=== PATIENT | female | born 1985 | race Caucasian/White ===

== ENCOUNTER 2017-10-11 13:49 | Emergency (ER) | payer BC | END 2017-10-11 17:12 | disposition home or self-care (01) | LOC: FTE 13:49 | DX: O26.891 Other specified pregnancy related conditions, first trimester (principal); R10.2 Pelvic and perineal pain; Z3A.14 14 weeks gestation of pregnancy | CPT/HCPCS: 76801; 99284-25 ==

== ENCOUNTER 2017-12-20 09:45 | Emergency (ER) | payer BC ==
[2017-12-20] MEDS: ACETAMINOPHEN 500 MG TAB PO (10:11)
[2017-12-20] MEDS: PENICILLIN V K 250 MG TAB PO (10:11)
== END 2017-12-20 10:13 | disposition home or self-care (01) ==
LOC: E/R 09:45
DX: O99.612 Diseases of the digestive system complicating pregnancy, second trimester (principal); K02.9 Dental caries, unspecified; Z3A.25 25 weeks gestation of pregnancy
CPT/HCPCS: 99283

== ENCOUNTER 2017-12-31 18:42 | Inpatient (IN) | payer BC ==
[2017-12-31] MEDS ORDERED: AL HYDROX/MG HYDROX/SIMETH 30 ML CUP PO (20:00)
[2017-12-31 20:19] LABS: ADD MAN DIFF? NO
[2017-12-31 20:23] LABS: BASOPHILS % 0.3 % (0.0-2.0); HEMOGLOBIN 13.2 g/dl (12.0-16.0); LYMPHOCYTES # 1.8 10^3/ul (0.8-2.9); LYMPHOCYTES % 12.1 % (15.0-51.0); MEAN CORPUSCULAR HEMOGLOBIN 29.7 pg (29.0-33.0); MEAN CORPUSCULAR HGB CONC 34.7 g/dl (32.0-37.0); MEAN CORPUSCULAR VOLUME 85.4 fl (82.0-101.0); MONOCYTE # 0.3 10^3/ul (0.3-0.9); MONOCYTES % 2.2 % (0.0-11.0); NEUTROPHIL # 12.2 10^3/ul (1.6-7.5); NEUTROPHILS % 84.4 % (39.0-77.0); PLATELET COUNT 296 10^3/UL (140-415); RED BLOOD COUNT 4.45 10^6/ul (4.20-5.40); RED CELL DISTRIBUTION WIDTH 13.8 % (11.5-14.5)
[2017-12-31 20:23] LABS: WHITE BLOOD COUNT 14.4 10^3/ul (4.8-10.8)
[2017-12-31 20:49] LABS: INR 1.02; PROTIME 13.5 Sec (11.9-14.9); PT RATIO 1.1
[2017-12-31 20:51] LABS: ALANINE AMINOTRANSFERASE 22 IU/L (13-69); ALBUMIN 4.4 g/dl (3.3-4.9); ALBUMIN/GLOBULIN RATIO 1.22; ALKALINE PHOSPHATASE 56 IU/L (42-121); ANION GAP 20 (8-16); ASPARTATE AMINO TRANSFERASE 19 IU/L (15-46); BILIRUBIN,INDIRECT 0.4 mg/dl (0-1.1); BILIRUBIN,TOTAL 0.4 mg/dl (0.2-1.3); BLOOD UREA NITROGEN 13 mg/dl (7-20); CALCIUM 9.6 mg/dl (8.4-10.2); CARBON DIOXIDE 20 mmol/L (21-31); CHLORIDE 108 mmol/L (97-110); CREATININE 0.61 mg/dl (0.44-1.00); GLUCOSE 104 mg/dl (70-220); POTASSIUM 3.9 mmol/L (3.5-5.1); SODIUM 144 mmol/L (135-144); URIC ACID 7.3 mg/dl (3.1-7.9)
[2017-12-31 20:57] LABS: PARTIAL THROMBOPLASTIN TIME 25.2 Sec (25.0-35.0)
[2017-12-31] MEDS: MAGNESIUM SULFATE 4 GM/100 ML 100 ML IVPB (21:00)
[2017-12-31] MEDS: LACTATED RINGER'S 1,000 ML IV (21:00)
[2017-12-31] MEDS: ONDANSETRON 4 MG INJ IV (21:05)
[2017-12-31] MEDS: MAGNESIUM SULFATE 20 GM/500 ML 500 ML IV (21:37)
[2017-12-31] MEDS ORDERED: ACETAMINOPHEN 325 MG TAB PO (22:00)
[2018-01-01 00:48] LABS: ADD UMIC YES; UR ASCORBIC ACID NEGATIVE (NEGATIVE); UR BILIRUBIN (Dip) NEGATIVE (NEGATIVE); UR BLOOD (Dip) NEGATIVE (NEGATIVE); UR CLARITY SLIGHTLY CLOUDY (CLEAR); UR COLOR YELLOW (YELLOW); UR GLUCOSE (Dip) 1+ mg/dL (NEGATIVE); UR KETONES (Dip) 2+ mg/dL (NEGATIVE); UR LEUKOCYTE ESTERASE (Dip) TRACE Leu/ul (NEGATIVE); UR MUCUS MANY /HPF (NONE SEEN); UR NITRITE (Dip) NEGATIVE (NEGATIVE); UR RBC 1 /HPF (0-5); UR SPECIFIC GRAVITY (Dip) 1.027 (1.003-1.030); UR SQUAMOUS EPITHELIAL CELL FEW /HPF (FEW); UR TOTAL PROTEIN (Dip) 1+ mg/dl (NEGATIVE); UR UROBILINOGEN (Dip) NEGATIVE (NEGATIVE); UR WBC 4 /HPF (0-5)
[2018-01-01] MEDS: ACETAMINOPHEN 325 MG TAB PO ×2 (01:41→05:57)
[2018-01-01] MEDS: LACTATED RINGER'S 1,000 ML IV (01:44)
[2018-01-01] MEDS: MAGNESIUM SULFATE 20 GM/500 ML 500 ML IV (07:35)
[2018-01-01] MEDS: DEXTROSE 5%-LR 1,000 ML IV ×2 (12:01→19:41)
[2018-01-01 13:02] LABS: MAGNESIUM 6.5 mg/dl (1.7-2.5)
[2018-01-01 15:19] LABS: RAPID PLASMA REAGIN NONREACTIVE (NR)
[2018-01-01] MEDS: LEVETIRACETAM 500 MG (PMX) 100 ML IVPB (15:41)
[2018-01-01 16:28] LABS: ANION GAP 10 (8-16); BLOOD UREA NITROGEN 7 mg/dl (7-20); CALCIUM 6.1 mg/dl (8.4-10.2); CARBON DIOXIDE 26 mmol/L (21-31); CHLORIDE 103 mmol/L (97-110); CREATININE 0.53 mg/dl (0.44-1.00); GLUCOSE 104 mg/dl (70-220); POTASSIUM 3.6 mmol/L (3.5-5.1); SODIUM 135 mmol/L (135-144)
[2018-01-02 00:04] LABS: COLLECTION PERIOD 24 hrs
[2018-01-02 00:55] LABS: 24HR URINE TOTAL PROTEIN 586.5 mg/24hrs (42.0-225.0); VOLUME 2550 mls
[2018-01-02 01:15] LABS: COLLECTION PERIOD 24 hrs; CREATININE CLEARANCE 119.3 mls/min (84.0-162.0); CREATININE,URINE RANDOM 40.48 mg/dl (20-320); SCRET 0.53 mg/dl (0.44-1.00); VOLUME 2250 ml/24hrs
[2018-01-02 01:15] LABS: MAGNESIUM 3.3 mg/dl (1.7-2.5)
[2018-01-02] MEDS: DEXTROSE 5%-LR 1,000 ML IV (02:10)
[2018-01-02] MEDS: LEVETIRACETAM 500 MG (PMX) 100 ML IVPB ×2 (03:02→14:15)
[2018-01-02 06:10] LABS: ADD MAN DIFF? NO
[2018-01-02 06:21] LABS: WHITE BLOOD COUNT 7.4 10^3/ul (4.8-10.8)
[2018-01-02 06:21] LABS: BASOPHILS % 0.3 % (0.0-2.0); EOSINOPHILS % 0.4 % (0.0-7.0); HEMATOCRIT 30.6 % (37.0-47.0); HEMOGLOBIN 10.4 g/dl (12.0-16.0); LYMPHOCYTES # 1.9 10^3/ul (0.8-2.9); LYMPHOCYTES % 24.9 % (15.0-51.0); MEAN CORPUSCULAR HEMOGLOBIN 29.5 pg (29.0-33.0); MEAN CORPUSCULAR VOLUME 86.7 fl (82.0-101.0); MEAN PLATELET VOLUME 10.1 fl (7.4-10.4); MONOCYTE # 0.4 10^3/ul (0.3-0.9); MONOCYTES % 5.5 % (0.0-11.0); NEUTROPHIL # 5.1 10^3/ul (1.6-7.5); NEUTROPHILS % 68.1 % (39.0-77.0); PLATELET COUNT 245 10^3/UL (140-415); RED BLOOD COUNT 3.53 10^6/ul (4.20-5.40); RED CELL DISTRIBUTION WIDTH 14.3 % (11.5-14.5)
[2018-01-02 06:56] LABS: ALANINE AMINOTRANSFERASE 30 IU/L (13-69); ALBUMIN 3.1 g/dl (3.3-4.9); ALKALINE PHOSPHATASE 40 IU/L (42-121); ANION GAP 6 (8-16); ASPARTATE AMINO TRANSFERASE 20 IU/L (15-46); BILIRUBIN,INDIRECT 0.2 mg/dl (0-1.1); BILIRUBIN,TOTAL 0.2 mg/dl (0.2-1.3); BLOOD UREA NITROGEN 5 mg/dl (7-20); CALCIUM 7.3 mg/dl (8.4-10.2); CARBON DIOXIDE 22 mmol/L (21-31); CHLORIDE 113 mmol/L (97-110); CREATININE 0.44 mg/dl (0.44-1.00); GLUCOSE 101 mg/dl (70-220); POTASSIUM 3.6 mmol/L (3.5-5.1); SODIUM 137 mmol/L (135-144); TOTAL PROTEIN 5.9 g/dl (6.1-8.1)
[2018-01-02 08:14] LABS: MAGNESIUM 3.3 mg/dl (1.7-2.5)
[2018-01-02 12:17] LABS: URINE SPECIFIC GRAVITY (Dip) 1.009 (1.003-1.030)
[2018-01-02 13:15] LABS: URIC ACID 4.3 mg/dl (3.1-7.9)
== END 2018-01-02 15:30 | disposition home or self-care (01) | DRG 781 ==
LOC: OBT 18:42 → L-D 18:47 → OBT 19:40 → L-D 19:28
DX: O99.352 Diseases of the nervous system complicating pregnancy, second trimester (principal); O12.12 Gestational proteinuria, second trimester; G40.909 Epilepsy, unspecified, not intractable, without status epilepticus; G43.909 Migraine, unspecified, not intractable, without status migrainosus; O99.282 Endocrine, nutritional and metabolic diseases complicating pregnancy, second trimester; E86.0 Dehydration; Z3A.26 26 weeks gestation of pregnancy
CPT/HCPCS: 70551; 76815; 76818; 80048; 80053; 81001; 81003; 82575; 83735; 84156; 84560; 85025; 85610; 85730; 86592; 86850; 86900; 86901; 93005; 95819